=== PATIENT | female | born 1985 | race Caucasian/White ===

== ENCOUNTER → 2020-03-14 11:30 | Outpatient (CLI) | payer OTHER, SELFPAY ==
[2014-04-22 01:27] VITALS: BMI 61.9
[2020-03-16 20:07] LABS: Chlamydia By Nucleic Acid AMP Negative (Negative)
[2020-03-16 20:38] LABS: Gonococcus By Nucleic Acid AMP Negative (Negative)
[2020-03-17 15:21] LABS: HPV Reflexed? NOT INDICATED
== END ==
PROVIDERS: PCP Family Medicine; Visit Provider Obstetrics & Gynecology
DX: Z12.4 Encounter for screening for malignant neoplasm of cervix (principal); Z11.3 Encounter for screening for infections with a predominantly sexual mode of transmission
CPT/HCPCS: 87491; 87591; 88175; G0145

== ENCOUNTER → 2020-08-02 14:41 | Outpatient (CLI) | payer OTHER, SELFPAY | PROVIDERS: PCP Family Medicine; Referring Provider Obstetrics & Gynecology; Visit Provider Obstetrics & Gynecology | DX: Z03.818 Encounter for observation for suspected exposure to other biological agents ruled out (principal) | CPT/HCPCS: 87635; C9803; U0005; U0003 ==

== ENCOUNTER 2020-08-07 05:08 | Inpatient (IN) | payer SELFPAY ==
--- NOTE | 2020-08-06 16:52 | PCM.HP.BLA ---
History and Physical Date of Admission: 08/07/20 ACOG ANTEPARTUM RECORD - HISTORY AND PHYSICAL (08/06/2020) Name: TABBY JOHNSON History of this : This is a 34 year old [id number] presents at 39 wks + 1 days gestation for repeat . care has been uneventful otherwise. OB Physician: Brendon Sarmiento MD Chromo's Physician: PED STORAGE GARAGE MANAGER and Dr. Zendejas ...................................................................... : 1985 Age: 34 Address: [address] [place] [address] Phone: (h) [phone] (O) [phone] Insurance Carrier: [facility] SCI[facility] [phone] Emergency Contact: FRANCHESKA HANKS/MOTHER [phone] ...................................................................... Final JACINDA: 08/12/20 By Ultrasound: 19 weeks 3 days PARITY: (G-Total Pregnancies P-Fullterm,Premature,Induced AB,Spont AB, Ectopics, Multiple,Living) JACINDA CONFIRMATION: By LMP: 11/06/19 Final JACINDA: 08/12/20 OB PROBLEM LIST: Declined AFP-consent signed Plans delivery [facility] Prior --plan repeat ALLERGIES: NKDA MEDICATIONS: Calcium supplement Supplement (s) [No Strength] Magnesium Oil, Ellis Oil, Folic Acid SOCIAL HISTORY: Smoking - denies smoking Alcohol Use - None Diet - limits dairy, minimal fruit, 1 c coffee week. Water 5 to 8 lg glasss daily. Lifestyle - moderate stress lifestyle and Exercise - Busy w home chores, family, garden. Enc to walk 20 min daily. Employer - unemployed Job Description - housewife Illicit Drug Use - None Sexual Activity - Spouse-Sig Other Name - Ottoniel Spouse-Sig Other Occupation - [employer] Spouse-Sig Other Phone No - same as home. Children Name(s) - Evdzam-90-EBH, Dimitri 11-JMW Russ--JMW PRIOR DELIVERY HISTORY DEL DATE GEST LAB WT LB WT OZ TYPE ANES LABOR TX 01 Aug 31 7 0 0 0 Sab None No Apr 29 38 12 7 10 C-Sec Epidural No Sep 24 38 12 7 4 Vag None No Aug 21 41 26 7 11 Vag Epidural No ANTEPARTUM FLOW CHART VISIT RTC FU F F CT U U DATE WK MD WKS HT PN HR M SS BP ED WT CT GL D EF ST __ ____ ___ __ __ ___ __ __ __ ___ __ __ __ ___ __ 17 Jul 38 JMW 3 37 + + 130/74 sl 285 tr - 09 Jul 37 JMW 1 37 + + 118/78 1+ 284 tr - Jun JM 3 34 V + + 118/70 1+ 276 tr - Jun JMW 2 32 + + 108/72 sl 272 tr - Jun 12 JMW 3 28 + + 112/68 sl 271 - - May 09 JMW 4 24 + + 118/68 sl 268 tr - Apr 03 JMW 4 20 + / 261 ANTEPARTUM NOTE(S): Aug 02 2020: FM Noted, C/S scheduled for 08/07/20, Ck NST-dec FM Jul 25 2020: Good FM Jul 04 2020: severe vericosities Rt lower leg Jun 20 2020: Ctxs-mild, Good FM May 23 2020: Doing Well, 1hr GTT/CBC drawn, Cabella's 06/13Apr 25 2020: Doing Well, Glucola Given Mar 21 2020: US OK COMPREHENSIVE ANTEPARTUM NOTE(S): Aug 02 2020: Tabby here today for PNV and had covid testing done prior to this PNV in preparation of scheduled 08/07/20. ABBY Jul 04 2020: 34wk, repeat c/s 08/07/20 scheduled. Pt wants repeat c/s unless advanced dilation. Pt okay with GBS collection next visit. Desire to see Dr. Sarmiento at next visit. JM Mar 27 2020: TELEHEALTH NOB- Tabby is a 34 yo G 5 P 3 Orthodox homemaker with sons ages 12, 9 and almost 6 years. Her JACINDA is 08-12-20 planning a RCS w spinal at [facility] using Dr Zendejas for post discharge ped care and to breastfeed. She would like to if she goes fast and is 7 or 8 cm when she gets to the hospital. She is to Ottoniel who works at [employer]. They have been trying to conceive for 5 years and are very pleased about the . She said her boys are also happy. Tabby has NKA to drugs, food, latex or the environment. She is a lifetime non smoker, non drinker and denies street drug use. She does admit to having 2 or 3 cigarettes as a young teen. Her diet is somewhat limited in dairy and fruit. She occ eats cheese or icecream and eats apples only. She has one cup of coffee on Friday morning and what sounds like 3+ liters of water daily. She is active w her home chores and family. Enc to walk 15-20 min daily as she can. Genetics Screening form completed at today's pnv noting no family issues and she declines all genetics testing. Warning signs in pg reviewed as well as wearing her seatbelt ALWAYS regardless of her position in the vehicle and low on her abd, lifting restriction of 25#, reaching the office after hours, the importance of protein in her low protein diet for growth and otc meds ok to take w understanding voiced. They have no indoor cats and she is aware of litter box issues. She has a copy of What to Expect. No office classes needed- she nursed each baby 5 mo. longer suggested if she'd like. Enc to call w any concerns. EPDS score 12. Visit took 45 min. Mariola ZAMARRIPA NEW Mar 14 2020: ok Mar 14 2020: Tabby presents for her Missed Menses. She is a 34yo G 4, P 3 with hx of 1prior last for Failure to progress. LMP 11/06/19, JACINDA by LMP is 08/12/20. She is 18w3d by LMP. Pt is taking Neolite supplements including Calcium,Folic acid,Ellis Oil etc. It is a complete supp and taken inplace of Vits. NOB packet given. NOB paperwork completed so pt can be sched for her Telehealth NOB. +UPT in office today. Pt relates she thinks she has noted light FM intermittently. She has been attempting for over 5yrs.and she is very excited about this. She is planning to deliver via R/ at [facility] per Dr Sarmiento. depression score is 12 today. JT REVIEW OF SYSTEMS: GENERAL - Denies fever, or chills SKIN - Denies rash, new skin lesions, or change in moles EYES - Denies blurred vision, or change in visual acuity EARS - Denies ear pain, or difficulty hearing NOSE - Denies nasal congestion, discharge, or bleeding MOUTH - Denies sore throat, or difficulty swallowing NECK - Denies pain or swelling RESPIRATORY - Denies shortness of breath, cough, wheezing CARDIOVASCULAR - Denies palpitations, chest pain, orthopnea, PND, peripheral edema, syncope or claudication GASTROINTESTINAL - Denies nausea, vomiting, diarrhea, constipation, Denies abdominal pain, melena and or bright red blood GENITOURINARY - Denies dysuria, frequency of urination, urgency, or hesitancy MUSCULOSKELETAL - Denies joint or muscle pain, or back pain NEUROLOGICAL - Denies localized numbness, weakness, or tingling PSYCHIATRIC - Denies depression, anxiety, substance abuse or suicide attempts ENDOCRINE - Denies heat or cold intolerance, weight loss or gain, increasing thirst HEMATO-IMMUNOLOGIC - Denies easy bruising, bleeding, oral ulcerations or recurrent infections GENETICS SCREENING: Age 35+ years: No Thalassemia: No Neural Tube Defect: No Down Syndrome: No JOSEPHINE-SACHS: No Sickle Cell Disease: No Hemophilia: No Musc. Dystrophy: No Cystic Fibrosis: No-declines screening [place] Chorea: No Mental Retardation: No Fragile X: No Other genetic: No Other defects: No SABs/still births: Yes x1 Drugs since LMP: No INFECTION HISTORY: High risk AIDS: No High risk Hepatitis: No Exposed to TB: No Exposed to Herpes: No Rash/viral illness since LMP: No History of STD: No MENSTRUAL HISTORY: *Menarche (Age Onset): 12* PAST SUMMARY: PARITY: 1. Total Pregnancies............ 5 2. Full Term Pregnancies........ 3 3. Premature.................... 0 4. Abortions - Induced.......... 0 5. Abortions - Spontaneous...... 1 6. Ectopics..................... 0 7. Multiple Births.............. 0 8. Living Children.............. 3 PAST #1: Date of :.................. 08/27/07 Gestation Weeks:................ 41 Length of labor(hours):......... 26 Sex:............................ M Weight-lbs:............... 7 Weight-oz:................ 11 Type of Delivery:............... Vag Type of Anesthesia:............. Epidural Place of Delivery:.............. [place] Treatment of Labor?:.... No Comment: PAST #2: Date of :.................. 09/24/10 Gestation Weeks:................ 38 Length of labor(hours):......... 12 Sex:............................ M Weight-lbs:............... 7 Weight-oz:................ 4 Type of Delivery:............... Vag Type of Anesthesia:............. None Place of Delivery:.............. [place] Treatment of Labor?:.... No Comment: PANIC ATTACK AT DELIVERY PAST #3: Date of :.................. 04/23/14 Gestation Weeks:................ 38 Length of labor(hours):......... 12 Sex:............................ M Weight-lbs:............... 7 Weight-oz:................ 10 Type of Delivery:............... C-Sect Type of Anesthesia:............. Epidural Place of Delivery:.............. [place] Treatment of Labor?:.... No Comment: [facility] PAST #4: Date of :.................. 08/14/17 Gestation Weeks:................ 7 Length of labor(hours):......... 0 Sex:............................ UNKNOWN Weight-lbs:............... 0 Weight-oz:................ 0 Type of Delivery:............... Sab Type of Anesthesia:............. None Place of Delivery:.............. [place] Treatment of Labor?:.... No Comment: PHYSICAL EXAMINATION General Appearence: 34 yo female in no acute distress Vital Signs: AF, VSS Heart: RRR without rubs or gallops Lungs: CTA x 2 Breasts: deferred Abdomen: gravid Pelvis: Cervix: Presentation: cephalic Station: Fetus: Size: AGA Movement: present Heart: present LAB TEST(S) ORDERED SINCE:11/16/19 05/23/2020 GLUCOSE CHALLENGE 50GM 1 HOUR 05/23/2020 CBC + DIFF 04/03/2020 Initial OB Labs 03/17/2020 PAP IG W/REFLEX HR HPV APTIMA 03/16/2020 POMERENE 3 [CCL] 03/16/2020 HEPATITIS C AB IA W/CONFIRM [CCL] 03/16/2020 CHLAMYDIA/GC DULCE APTIMA 03/14/2020 URINALYSIS 03/14/2020 TSH 03/14/2020 CREATININE 03/14/2020 CBC + DIFF 03/14/2020 BB TYPE 08/03/2020 COVID 19, DULCE SENDOUT == ==== Order Observation Description Value Ref_Range A* Site == ==== COVID 19, DULCE NOTE [facility] COVID 19, DULCE COVID-19,DULCE Not Detected Not Detected [facility] GLUCOSE CHALLEN GLUCOSE CHALLENGE 50GM 1 [facility] GLUCOSE CHALLENGE 50 GMS 1 HOUR GLUCOSE CHALLEN GLUCOSE 1HR 110 mg/dl 70 - 140 [facility] CBC + DIFF NOTE [facility] CBC + DIFF CBC + DIFF [facility] CBC-COMPLETE BLOOD COUNT CBC + DIFF WBC 9.6 x 10EE3/UL 4.5 - 10.8 [facility] CBC + DIFF RBC 3.87 x 10EE6/UL 4.10 - 5.30 L [facility] CBC + DIFF HEMOGLOBIN 11.9 g/dl 12.0 - 16.0 L [facility] CBC + DIFF HEMATOCRIT 34.1 % 34.0 - 46.0 [facility] CBC + DIFF MCV 88 fl 80 - 99 [facility] CBC + DIFF MCH 31 pg 27 - 33 [facility] CBC + DIFF MCHC 35 X10 3 32 - 36 [facility] CBC + DIFF RDW/CV 14.5 % 12.0 - 15.6 [facility] CBC + DIFF PLATELET 244 x10EE3/UL 150 - 450 [facility] CBC + DIFF MPV 8.3 fl 6.6 - 10.5 [facility] AUTOMATED DIFFERENTIAL CBC + DIFF NEUT % 83.2 % 46.0 - 76.0 H [facility] CBC + DIFF LYMPH % 12.4 % 20.0 - 45.0 L [facility] CBC + DIFF MONOS % 3.9 % 0.0 - 10.0 [facility] CBC + DIFF EO % 0.4 % 0.0 - 7.0 [facility] CBC + DIFF BASO % 0.1 % 0.0 - 2.0 [facility] CBC + DIFF LYMPH # 1.20 x10EE3/UL 0.80 - 2.80 [facility] CBC + DIFF NEUT # 8.00 x10EE3/UL 1.50 - 7.10 H [facility] CBC + DIFF MONO # 0.40 x10EE3/UL 0.20 - 1.00 [facility] CBC + DIFF EO # 0.00 x10EE3/UL 0.00 - 0.50 [facility] CBC + DIFF BASO # 0.00 x10EE3/UL 0.00 - 0.10 [facility] CBC + DIFF MANUAL DIFF N/A [facility] CBC + DIFF MORPHOLOGY N/A [facility] {CD] Initial OB Labs HIV Test negative - scanned Negative [facility] PAP IG W/REFLEX NOTE [facility] PAP IG W/REFLEX DIAGN Comment . LC NEGATIVE FOR INTRAEPITHELIAL LESION OR MALIGNANCY. CHLAMYDIA/GC NA NOTE [facility] CHLAMYDIA/GC NA CHLAMY,NUC ACID Negative Negative LC CHLAMYDIA/GC NA GC BY NUC ACID Negative Negative LC Performed at: = - [facility] [id number] Product Safety Engineer: Magda Bragg MD, Phone: [phone] HEPATITIS C AB NOTE [facility] HEPATITIS C AB REFLEX HCQPCR? NO [facility] HEPATITIS C AB HEPATITIS C AB IA Negative NEGAT [facility] [address] [place] [address] Arnaldo Gomez III, M.D. [id number] POMERENE 3 [CCL NOTE [facility] POMERENE 3 [CCL RPR Non Reactive NR [facility] [[facility]L HEPATITIS B SURF. AG Negative NEGAT [facility] POMERENE 3 [CCL RUBELLA IGG AB, QUAL Positive NEGAT A [facility] Sample is considered positive for IgG antibodies to rubella virus. A positive result indicates previous exposure to Rubella virus or vaccination. POMERENE 3 [CCL RUBELLA IGG AB 3.41 Indexlue [facility] TSH TSH 1.12 uIU/ml 0.34 - 5.60 [facility] BB TYPE NOTE [facility] BB TYPE BB TYPE [facility] TYPE, Rh, AND SCREEN BB TYPE ABO A [facility] BB TYPE RH POS [facility] BB TYPE ANTIBODY SCR negative [facility] CREATININE NOTE [facility] CREATININE CREATININE 0.6 mg/dl 0.6 - 1.2 [facility] URINALYSIS NOTE [facility] URINALYSIS URINALYSIS [facility] URINALYSIS URINALYSIS SPECIMEN TYPE Clean catch [facility] URINALYSIS COLOR p.yel NORMAL: YELLOW [facility] URINALYSIS CLARITY clear NORMAL: CLEAR [facility] URINALYSIS PH 7 NORMAL: 5.0-8.0 [facility] URINALYSIS PROTEIN NEG NORMAL: NEGATIV [facility] URINALYSIS GLUCOSE NORM NORMAL: NORMAL [facility] URINALYSIS KETONE NEG NORMAL: NEGATIV [facility] URINALYSIS BILIRUBIN NEG NORMAL: NEGATIV [facility] URINALYSIS BLOOD NEG NORMAL: NEGATIV [facility] URINALYSIS UROBILINOG NORM NORMAL: NORMAL [facility] URINALYSIS SP GRAVITY 1.005 NORMAL: 1.010-1 L [facility] URINALYSIS NITRITE NEG NORMAL: NEGATIV [facility] URINALYSIS LEUKOCYTES NEG NORMAL: NEGATIV [facility] URINALYSIS MICROSCOPIC NOT INDICATED [facility] CBC + DIFF NOTE [facility] CBC + DIFF CBC + DIFF [facility] CBC-COMPLETE BLOOD COUNT CBC + DIFF WBC 11.1 x 10EE3/UL 4.5 - 10.8 H [facility] CBC + DIFF RBC 4.27 x 10EE6/UL 4.10 - 5.30 [facility] CBC + DIFF HEMOGLOBIN 13.0 g/dl 12.0 - 16.0 [facility] CBC + DIFF HEMATOCRIT 37.1 % 34.0 - 46.0 [facility] CBC + DIFF MCV 87 fl 80 - 99 [facility] CBC + DIFF MCH 30 pg 27 - 33 [facility] CBC + DIFF MCHC 35 X10 3 32 - 36 [facility] CBC + DIFF RDW/CV 13.8 % 12.0 - 15.6 [facility] CBC + DIFF PLATELET 225 x10EE3/UL 150 - 450 [facility] CBC + DIFF MPV 8.1 fl 6.6 - 10.5 [facility] AUTOMATED DIFFERENTIAL CBC + DIFF NEUT % 79.2 % 46.0 - 76.0 H [facility] CBC + DIFF LYMPH % 15.4 % 20.0 - 45.0 L [facility] CBC + DIFF MONOS % 4.6 % 0.0 - 10.0 [facility] CBC + DIFF EO % 0.4 % 0.0 - 7.0 [facility] CBC + DIFF BASO % 0.4 % 0.0 - 2.0 [facility] CBC + DIFF LYMPH # 1.70 x10EE3/UL 0.80 - 2.80 [facility] CBC + DIFF NEUT # 8.80 x10EE3/UL 1.50 - 7.10 H [facility] CBC + DIFF MONO # 0.50 x10EE3/UL 0.20 - 1.00 [facility] CBC + DIFF EO # 0.00 x10EE3/UL 0.00 - 0.50 [facility] CBC + DIFF BASO # 0.00 x10EE3/UL 0.00 - 0.10 [facility] CBC + DIFF MANUAL DIFF N/A [facility] CBC + DIFF MORPHOLOGY N/A [facility] == ==== Impression /Plan: 39 wks + 1 days intrauterine for repeat . Preparations in progress for delivery.
[2020-08-07] VITALS (22 sets, daily range): BP systolic 104–150; BP diastolic 59–84; PULSE 60–87; RESP 16–18; TEMP 35.8–37.1; O2SAT 94–100; BMI 50.8
--- NOTE | 2020-08-07 | FALS_PTH ---
PATIENT: VIRGINIA JOHNSON LOC: [facility] U#:[id number] AGE/SX: 34/F [facility]: Dr. Brendon Sarmiento MD : 1985 BED: 1 DIS: 08/09/2020 SPEC #: [id number] RECD: 08/07/20 10:15 STATUS: DESHAUN REAinsley #: [id number] PACHECO: 08/07/20 00:[address]: Brendon Sarmiento DEPT: SURGICAL PATHOLOGY RECD BY: Mauricio Shi ENTERED: 08/07/20 10:15 SP TYPE: FALL TUBES OTHR DR: Dr. Kale Zendejas, DO Tissues: Fallopian tube Procedures: Surgery Specimen Level II HEADER OPERATION: Tubal ligation PRE-OP DIAGNOSIS: Sterilization TISSUE SUBMITTED: Fallopian tubes, suture in right MICROSCOPIC DIAGNOSIS Bilateral fallopian tubes, salpingectomy: Bilateral fallopian tubes including fimbrial ends, no pathologic diagnosis. SJ:jerry 08/08/2020 MICROSCOPIC DESCRIPTION Slides are reviewed. GROSS DESCRIPTION Received in fixative is one container labeled with the patient's name and designated bilateral fallopian tubes. The specimen consists of bilateral fallopian tubes including fimbrial ends. The right tube is identified by a suture. The right tube measures 6 cm in length and 0.7 cm in diameter and the left fallopian tube measures 6 cm in length and 0.5 cm in diameter. The fimbrial end of the left fallopian tube is detached and measures 1.5 x 1 x 0.3 cm. Sections reveal unremarkable cut surfaces. Chief Power Dispatcher sections are submitted in two cassettes as follows: 1 - right fallopian tube, 2 - left fallopian tube. / DIMITRY:jerry 08/07/20 TC:4 [facility]: [id number] x2
[2020-08-07] MEDS: Lactated Ringers 1,000 ML 999 ML IV (05:40)
[2020-08-07 05:47] LABS: Absolute Lymphocyte Count 1.53 X10^3/uL (0.83-4.51); Absolute Neutrophil Count 8.8 X10^3/uL (2.0-7.7); Basophil# 0.02 X10^3/uL; Basophil% 0.2 % (0-1); Eosinophil# 0.09 X10^3/uL; Eosinophils% 0.8 % (0-5); Hematocrit 38.8 % (37-47); Hemoglobin 12.6 g/dL (12.0-15.0); Lymphocyte # 1.53 X10^3/ul (4.0); Lymphocyte % 13.8 % (19-41); Mean Corp Hgb Conc 32.5 g/dL (32-36); Mean Corpuscular Hgb 29.9 pg (27.0-32.0); Mean Corpuscular Volume 92.2 fL (81-99); Mean Platelet Vol. 10.6 fl (6.2-12.0); Monocyte# 0.57 X10^3/uL; Monocyte% 5.1 % (0-10); NRBC Flagged by Analyzer 0 % (0-5); Neutrophil # 8.82 X10^3/uL (2.7-7.7); Neutrophil % 79.6 % (47-70); Platelet Count 188 K/mm3 (150-450); RBC Distribution Width CV 13.9 % (11.6-14.6); RBC Distribution Width SD 46.5 fl (35.1-43.9); Red Blood Count 4.21 M/mm3 (4.2-5.4); White Blood Count 11.1 K/mm3 (4.4-11.0)
[2020-08-07] MEDS: Acetaminophen 500 MG Tablet 1000 MG PO ×4 (05:59→23:48)
[2020-08-07] MEDS: Lactated Ringers 1,000 ML 100 ML IV ×2 (06:48→13:13)
[2020-08-07] MEDS: Sodium Citrate/Citric Acid 30 ML UDC PO (06:48)
[2020-08-07] MEDS: Cefazolin 2 GM in 0.9% Normal Saline 100 ML IV (07:21)
--- NOTE | 2020-08-07 08:49 | PCM.OPRPT ---
Delivery Classification: Scheduled Final JACINDA: 08/12/20 Final JACINDA Source: US <20 weeks Gestational age: 39 Weeks and 2 Days concrete pouring supervisor: Ari Medley Type of Anesthesia:: Spinal - With Duramorph Implants Used: None Date of Procedure: 08/07/20 Pre-Operative Diagnosis: Previous Section, Desires Permanent Sterilization Post-Operative Diagnosis: Previous Section, Desires Permanent Sterilization Description of Procedure: Surgeon: Brendon Sarmiento MD, FACOG Anesthesia: Mauricio Britt CRNA Procedure: Repeat Low Transverse Cervical Caesarean Section And Bilateral Salpingectomy Findings: Viable female infant with Apgars of 8/10 in occiput anterior presentation with clear amniotic fluid and normal three-vessel placenta. Cord was around the neck x3 loose. Adhesions of the left fallopian tube to the sigmoid colon and adhesions of the omentum to the anterior uterus. Indication: This is a 34-year-old who presents for her second at 39+ weeks gestation. care has otherwise been uneventful except for well-controlled gestational diabetes. Patient also desires permanent sterilization. The patient has been counseled regarding the risk and indications of this procedure including the possibility of bleeding infection and injury to surrounding structures such as bowel bladder. She also understands the permanent nature of her tubal, the failure rate of 1 to 2%, and the availability of other nonpermanent control options. All questions were answered. Procedure: Patient was taken to the operating room where after spinal anesthesia was placed, the patient was prepped and draped in usual sterile fashion and a Bailey catheter was placed. The abdomen was entered through the patient's prior Pfannenstiel incision and peritoneum was entered bluntly. After developing a bladder flap on the lower uterine segment a low transverse incision was made on the uterus and head was easily delivered onto the operative field the nose mouth and oropharynx were bulb suctioned. Subsequently a viable female infant was born with Apgars of 8/10. The was noted to cry move all extremities vigorously on the operative field. The umbilical cord was doubly clamped and ligated and infant handed to the nursery personnel who were present for the delivery. Placenta was delivered and noted to be 3 vessels and normal. Uterus was exteriorized and remaining placental tissue was removed. The uterus was then closed in 2 layers first with running locked 0 Vicryl suture followed by a second imbricating layer with 0 Vicryl suture. 0 Vicryl suture was then used in a horizontal mattress interrupted fashion to affect final hemostasis of the uterine incision line. Normal fallopian tubes and ovaries were visualized and ligated with the LigaSure device. Some adhesions were noted between the distal left fallopian tube and colon and these were taken down both sharply and with the LigaSure. Omental adhesions were also divided with the LigaSure device. The uterus was returned to the pelvis. Hemostasis was noted and rectus abdominis muscles were reapproximated in the midline with interrupted Number 0 Vicryl suture in a horizontal mattress fashion. Fascia was closed with running Number 1 PDS Strata fix suture. Subcutaneous tissue was irrigated with copious amounts of saline solution and then closed with running 3-0 Vicryl suture. Skin was closed with 4-0 monocryl suture in a running subcuticular fashion. Steri strips and a Mepilex dressing were placed across the incision. The patient tolerated the procedure well and was taken to the recovery room in satisfactory condition. Sponge, needle, and instrument counts were all reportedly correct. EBL was less than 500 cc. Ancef 2 gms IV was given prior to the procedure. Specimen to Pathology: Bilateral fallopian tubes Complications: None Amniotic Fluid Description: Clear Placenta Disposition: [facility] Specimen(s) sent to pathology: Bilateral fallopian tubes Drain: Bailey to straight drain Cord Entanglement: - - Cord around the neck x3 loose Cord Vessel Description: 3 Vessels Esitmated Blood Loss (ml): 500 cc Infant Gender: Female (1 minute): 8 (5 minute): 10 Antibiotic Given: Ancef 2 grams IV x1 Pt instructed on risks of surgery: Bleeding, Infection, Permanency, Failure Rate of 1 to 2%, Injury to surrounding structure(s) including bowel and bladder, Availability of other non-permanent control options - Admit VTE Documentation VTE Present on Admission: Yes VTE Mechan Device Prophylaxis: SCD's VTE Pharm Prophylaxis ordered?: Yes
--- NOTE | 2020-08-07 09:01 | DCINST_ITS ---
Discharge Diet: No Restrictions Discharge Activity: May not drive while taking narcotic pain medications., May Shower, May Take a Tub Bath May resume sexual activity in: 4-6 weeks Lifting Restrictions: 20 pounds Additional Activity Instructions:: Nothing in the vagina for 4-6 weeks. You may return to work/school in 6 weeks. Call your doctor if your incision/area has: Continuous Slow Oozing, Sudden Increased Bleeding, Increased Pain/ Swelling, Increased Redness, Foul Smelling Discharge Call your doctor if you observe: Fever of 101 or Higher, Inability to urinate, Inability to have a bowel movement, Using more than one pad per hour Additional Instructions: If you experience any of the following, contact your healthcare provider. * Bleeding that soaks a pad every hour for 2 hours * Fever 100.4 or higher * Unrelieved incision or abdominal pain * Swelling, redness, discharge or bleeding from your incision or episiotomy site * Your incision begins to separate * Problems urinating (including inability to urinate or burning while urinating). * Visual changes * Severe headache * Flu-like symptoms * Pain or redness in one of both of your breasts * Pain, warmth, tenderness or swelling in your legs, especially the calf area * Frequent nausea and vomiting * Symptoms of depression or anxiety If you experience any of the following, call 911 or go to the nearest Emergency Room. * Chest pain * Problems breathing * Seizure activity * Partial or complete paralysis of a body part, slurred speech, weakness or drooping of the face, or a sudden inability to walk or hold your balance Allergies/Adverse Reactions: Allergies No Known Allergies Allergy (Verified 04/22/14 01:28) Medications to take at Discharge Calcium Magnesium Caplet 1 tab PO BID 04/22/14 Prenatabs FA 1 tab PO DAILY 04/22/14 Docusate Sodium [Colace] 100 mg PO BID PRN PRN #60 cap 08/07/20 Folic Acid 1 tab PO BID 08/07/20 Oxycodone [Oxyir] 5 mg PO Q6H PRN PRN 7 Days #20 tablet 08/07/20 [place] Oil/[place]-3 Fatty Acids 1 tab PO BID 08/07/20 The following prescriptions were given: Docusate Sodium [Colace] 100 mg PO BID PRN PRN #60 cap PRN Reason: Constipation Transmission Status: Pending to [facility] Oxycodone [Oxyir] 5 mg PO Q6H PRN PRN 7 Days #20 tablet PRN Reason: Pain Score 6-10 Transmission Status: Sent to [facility] Follow-Up: Call to make an appointment with your doctor for an incision check in 1-2 weeks. You will also need a 6 week post- follow up appointment. Test results from this visit will be discussed in further detail at your follow- up appointment, if applicable. Please Follow Up With: Brendon Sarmiento MD - [phone] When: Call to make an appointment for an incision check in 2 weeks. Primary Care Physician: Kale Zendejas DO [Primary Care Provider] -
[2020-08-07] MEDS: Oxytocin 30 units/NS 500 ml 30 UNITS/500 ML IV.SOLN 167 UNITS IV (09:10)
[2020-08-07 09:28] LABS: Pathology Specimen OB SEE PATHOLOGY REPORT
[2020-08-07] MEDS: Ketorolac 30 MG/ML Syringe IV ×2 (13:12→18:59)
[2020-08-07] MEDS: Cefazolin 1 GM/50 ML BAG IV ×2 (15:21→23:46)
[2020-08-07] MEDS: 0.9% Saline Lock 10 ML Syringe IV ×3 (16:28→23:45)
[2020-08-07] MEDS: Enoxaparin 40 MG/0.4 ML Syringe SC (20:14)
[2020-08-08] VITALS (8 sets, daily range): BP systolic 102–116; BP diastolic 50–63; PULSE 67–85; RESP 16–20; TEMP 36.2–36.8; O2SAT 96–98
[2020-08-08] MEDS: 0.9% Saline Lock 10 ML Syringe IV ×3 (00:12→07:36)
[2020-08-08] MEDS: Ketorolac 30 MG/ML Syringe IV ×2 (01:18→07:36)
[2020-08-08] MEDS: Famotidine 20 MG Tablet PO (03:30)
[2020-08-08] MEDS: Acetaminophen 500 MG Tablet 1000 MG PO ×3 (06:10→18:12)
[2020-08-08] MEDS: Senna/Docusate Sodium 1 Tablet PO (06:26)
[2020-08-08 06:27] LABS: Hematocrit 34.3 % (37-47); Hemoglobin 11.2 g/dL (12.0-15.0); Mean Corp Hgb Conc 32.7 g/dL (32-36); Mean Corpuscular Hgb 29.5 pg (27.0-32.0); Mean Corpuscular Volume 90.3 fL (81-99); Mean Platelet Vol. 10.4 fl (6.2-12.0); Platelet Count 196 K/mm3 (150-450); RBC Distribution Width SD 45.4 fl (35.1-43.9); White Blood Count 12.4 K/mm3 (4.4-11.0)
--- NOTE | 2020-08-08 08:23 | PCM.PN.OB ---
Subjective: Patient without complaints. Tolerating diet well. Denies flatus. Breast-feeding going well. Objective: Wound is clean, dry, intact covered with Mepilex dressing. Some bruising about the incision. Good urine output. Hemoglobin stable. - Physical Exam Vitals/I&O's: Vital Signs Temp Pulse Resp BP Pulse Ox 97.6 F L 85 18 110/63 98 08/08/20 03:47 08/08/20 06:26 08/08/20 06:26 08/08/20 03:47 08/08/20 06:26 Oxygen Delivery Method Room Air Weight: 286 lb 9.6 oz Body Mass Index (BMI) 50.8 Intake and Output for Last 24 Hours 08/06/20 08/07/20 08/08/20 23:59 23:59 23:59 Intake Total 4236.67 / 4236.67 50 / 50 Output Total 1660 / 1660 Balance 2576.67 / 2576.67 50 / 50 Laboratory Results 08/08/20 06:18: WBC 12.4 H, RBC 3.80 L, Hgb 11.2 L, Hct 34.3 L, MCV 90.3, MCH 29.5, MCHC 32.7, RDW Std Deviation 45.4 H, RDW Coeff of Dariusz 14.0, Plt Count 196, MPV 10.4 Current Medications Acetaminophen (Acetaminophen 500 Mg Tablet) 1,000 mg PO Q6 [facility] Last Admin: 08/08/20 06:10 Dose: 1,000 mg Documented by: Bisacodyl (Bisacodyl 10 Mg Suppository) 10 mg RECTAL UD PRN PRN Reason: If no BM Diphenhydramine HCl (Diphenhydramine 25 Mg Capsule) 25 mg PO Q6H PRN PRN PRN Reason: ITCHING Stop: 08/08/20 09:15 Enoxaparin Sodium (Enoxaparin 40 Mg/0.4 Ml Syringe) 40 mg SC DAILY [facility] Last Admin: 08/07/20 20:14 Dose: 40 mg Documented by: Famotidine (Famotidine 20 Mg Tablet) 20 mg PO DAILY [facility] Last Admin: 08/08/20 03:30 Dose: 20 mg Documented by: Hydrocortisone (Hydrocortisone 2.5% Crm) 1 applic TOPICAL TID PRN PRN; Protocol PRN Reason: Discomfort Ibuprofen (Ibuprofen 600 Mg Tablet) 600 mg PO Q6H [facility] Methylergonovine Maleate (Methylergonovine 0.2 Mg/Ml Ampul) 0.2 mg IM X1 PRN PRN Reason: Uterine Atony Nalbuphine HCl (Nalbuphine 10 Mg/Ml Ampul) 5 mg IV Q3H PRN PRN PRN Reason: ITCHING Stop: 08/08/20 09:15 Naloxone HCl (Naloxone 0.4 Mg/Ml Syringe) 0.02 mg IV Q1M PRN PRN Reason: RR <10 and pt unresponsive Ondansetron HCl (Ondansetron 4 Mg/2 Ml Vial) 4 mg IV Q4H PRN PRN PRN Reason: Nausea Oxycodone HCl (Oxycodone 5 Mg Tablet) 5 - 10 mg PO Q4H PRN PRN PRN Reason: Pain Score 4-10 Prochlorperazine Edisylate (Prochlorperazine 10 Mg/2 Ml Vial) 10 mg IV Q6H PRN PRN PRN Reason: NAUSEA Senna/Docusate Sodium (Senna/Docusate Sodium 1 Tablet) 0 tablet PO DAILY [facility] Last Admin: 08/08/20 06:26 Dose: 2 tablet Documented by: Simethicone (Simethicone 80 Mg Tablet) 80 mg PO PCHS PRN PRN Reason: Indigestion/stomach pain Last Admin: 08/08/20 06:09 Dose: 80 mg Documented by: Sodium Chloride (0.9% Saline Lock 10 Ml Syringe) 5 - 15 ml IV UD PRN PRN Reason: SALINE FLUSH Last Admin: 08/08/20 07:36 Dose: 10 ml Documented by: Medical Necessity - Tobacco Use Smoking Status: Never smoker Assessment/Plan Doing well postoperative day #1 status post repeat and bilateral salpingectomy. Continue present care.
[2020-08-08] MEDS: Ibuprofen 600 MG Tablet PO ×2 (14:26→20:16)
[2020-08-08] MEDS: Enoxaparin 40 MG/0.4 ML Syringe SC (20:17)
[2020-08-08] MEDS: oxyCODONE 5 MG Tablet PO (21:56)
[2020-08-09] MEDS: Acetaminophen 500 MG Tablet 1000 MG PO ×2 (00:32→06:55)
[2020-08-09] MEDS: Ibuprofen 600 MG Tablet PO ×2 (00:32→06:56)
[2020-08-09 02:21] VITALS: BP 111/67; PULSE 78; RESP 15; TEMP 36.6; O2SAT 97
[2020-08-09] MEDS: oxyCODONE 5 MG Tablet PO (04:05)
[2020-08-09 07:37] VITALS: BP 108/60; PULSE 72; RESP 16; TEMP 36.6; O2SAT 99
--- NOTE | 2020-08-09 09:38 | PN.OBGYN_ITS ---
Subjective: Patient without complaints. Pain minimal. Minimal vaginal bleeding. Positive flatus. Tolerating diet well. Ready to go home. Objective: Wound is clean, dry, intact. Mepilex dressing removed per patient request. Good urine output. - Physical Exam Vitals/I&O's: Vital Signs Temp Pulse Resp BP Pulse Ox 97.8 F 72 16 108/60 99 08/09/20 07:37 08/09/20 07:37 08/09/20 07:37 08/09/20 07:37 08/09/20 07:37 Oxygen Delivery Method Room Air Weight: 286 lb 9.6 oz Body Mass Index (BMI) 50.8 Intake and Output for Last 24 Hours 08/07/20 08/08/20 08/09/20 23:59 23:59 23:59 Intake Total 4236.67 / 4236.67 50 / 50 Output Total 1660 / 1660 Balance 2576.67 / 2576.67 50 / 50 Current Medications Acetaminophen (Acetaminophen 500 Mg Tablet) 1,000 mg PO Q6 [facility] Last Admin: 08/09/20 06:55 Dose: 1,000 mg Documented by: Bisacodyl (Bisacodyl 10 Mg Suppository) 10 mg RECTAL UD PRN PRN Reason: If no BM Enoxaparin Sodium (Enoxaparin 40 Mg/0.4 Ml Syringe) 40 mg SC DAILY@1999 [facility] Last Admin: 08/08/20 20:17 Dose: 40 mg Documented by: Famotidine (Famotidine 20 Mg Tablet) 20 mg PO DAILY [facility] Last Admin: 08/09/20 08:57 Dose: Not Given Documented by: Hydrocortisone (Hydrocortisone 2.5% Crm) 1 applic TOPICAL TID PRN PRN; Protocol PRN Reason: Discomfort Ibuprofen (Ibuprofen 600 Mg Tablet) 600 mg PO Q6H [facility] Last Admin: 08/09/20 06:56 Dose: 600 mg Documented by: Methylergonovine Maleate (Methylergonovine 0.2 Mg/Ml Ampul) 0.2 mg IM X1 PRN PRN Reason: Uterine Atony Naloxone HCl (Naloxone 0.4 Mg/Ml Syringe) 0.02 mg IV Q1M PRN PRN Reason: RR <10 and pt unresponsive Ondansetron HCl (Ondansetron 4 Mg/2 Ml Vial) 4 mg IV Q4H PRN PRN PRN Reason: Nausea Oxycodone HCl (Oxycodone 5 Mg Tablet) 5 - 10 mg PO Q4H PRN PRN PRN Reason: Pain Score 4-10 Last Admin: 08/09/20 04:05 Dose: 10 mg Documented by: Prochlorperazine Edisylate (Prochlorperazine 10 Mg/2 Ml Vial) 10 mg IV Q6H PRN PRN PRN Reason: NAUSEA Senna/Docusate Sodium (Senna/Docusate Sodium 1 Tablet) 0 tablet PO DAILY [facility] Last Admin: 08/09/20 08:57 Dose: Not Given Documented by: Simethicone (Simethicone 80 Mg Tablet) 80 mg PO PCHS PRN PRN Reason: Indigestion/stomach pain Last Admin: 08/08/20 12:45 Dose: 80 mg Documented by: Sodium Chloride (0.9% Saline Lock 10 Ml Syringe) 5 - 15 ml IV UD PRN PRN Reason: SALINE FLUSH Last Admin: 08/08/20 07:36 Dose: 10 ml Documented by: Medical Necessity - Tobacco Use Smoking Status: Never smoker Assessment/Plan Doing well postoperative day #2 status post repeat and tubal. Will discharge to home with routine instructions.
== END 2020-08-09 11:00 | disposition home or self-care (01) | DRG 785 ==
PROVIDERS: Admitting Provider Obstetrics & Gynecology; PCP Family Medicine; Referring Provider Obstetrics & Gynecology; Visit Provider Obstetrics & Gynecology
PROC: 10D00Z1 Extraction of Products of Conception, Low, Open Approach (ICD-10-PCS; CPT 59514; principal; 2020-08-07 07:15)
DX: O34.211 Maternal care for low transverse scar from previous cesarean delivery (principal); Z37.0 Single live birth; Z3A.39 39 weeks gestation of pregnancy; Z30.2 Encounter for sterilization; O69.81X0 Labor and delivery complicated by cord around neck, without compression, not applicable or unspecified; O24.429 Gestational diabetes mellitus in childbirth, unspecified control
CPT/HCPCS: 85025; 85027; 86850; 86900; 86901; 88302; 99218; J7120; A4216; G0378; J2405